=== PATIENT | female | born 1965 | race Asian ===

== ENCOUNTER → 2022-09-05 | Outpatient (CLI) | payer OTHER ==
[~2022-09-05] MED LIST: FERR325T27 PO
[2022-09-06 08:06] LABS: RUBEOLA (MEASLES) IGG >300.0 AU/mL (Immune >16.4)
== END | disposition home or self-care (01) ==
LOC: LABMN 10:48
PROVIDERS: ATTEND Internal Medicine
DX: Z02.1 Encounter for pre-employment examination (principal)
CPT/HCPCS: 86706; 86735; 86762; 86765; 86787

== ENCOUNTER 2023-08-06 07:45 | Emergency (ER) | payer OTHER ==
[~2023-08-06] VITALS: Ht 149.9 cm; Wt 56.8 kg
[2023-08-06 07:49] VITALS: BP 123/84; PULSE 78; RESP 16; TEMP 98
[2023-08-06] MEDS: IBUPROFEN 600 MG TABLET PO ONE (09:17)
[2023-08-06] MEDS ORDERED: IBUP-1554 PO (09:17)
== END 2023-08-06 09:34 | disposition home or self-care (01) ==
LOC: EMS 07:51
DX: S63.501A Unspecified sprain of right wrist, initial encounter (principal); W10.8XXA Fall (on) (from) other stairs and steps, initial encounter; Y93.89 Activity, other specified; Y92.89 Other specified places as the place of occurrence of the external cause; Y99.0 Civilian activity done for income or pay
CPT/HCPCS: 99283